=== PATIENT | female | born 1990 | race Caucasian/White ===

== ENCOUNTER 2018-04-23 18:12 | Emergency (ER) | payer MEDICAID, SELFPAY ==
[2018-04-23 18:12] VITALS: BP 149/80; PULSE 84; RESP 16; TEMP 35.6; O2SAT 99; BMI 41.8
--- NOTE | 2018-04-23 18:34 | EKG12_ITS ---
Test Reason : SOB Blood Pressure : / mmHG Vent. Rate : 081 BPM Atrial Rate : 081 BPM P-R Int : 192 ms QRS Dur : 084 ms QT Int : 376 ms P-R-T Axes : 059 076 046 degrees QTc Int : 436 ms Normal sinus rhythm with sinus arrhythmia Normal ECG Confirmed by DEON MCCRAY, EILEEN ([id number]), city editor JANELLE MARCUM ([id number]) on 04/25/2018 3:43:57 PM Referred By: DR DE LEÓN Confirmed By:EILEEN CHAVARRIA MD
--- NOTE | 2018-04-23 18:35 | RAD_ITS ---
STUDY: X-RAY CHEST REASON FOR EXAM: Female, 27 years old. Chest pain TECHNIQUE: Frontal and lateral views COMPARISON: November 12, 2015 FINDINGS: The lungs are clear and expanded. There is no demonstrated pleural abnormality. Normal size heart. Normal mediastinum and tyler. Normal visualized pulmonary arteries. Normal visualized aortic arch and descending thoracic aorta. Normal visualized thoracic spine. Normal visualized ribs, clavicles, and shoulders. There is no demonstrated abnormality of the visualized soft tissue structures of the upper abdomen. RAD/Chest PA and Lateral IMPRESSION: Normal x-ray examination of the chest. Electronically Signed: Audie Shaver DO at 19:54 EST Tel [phone], Service support ,
[2018-04-23 19:16] LABS: Absolute Lymphocyte Count 4.48 X10^3/ul (0.83-4.51); Absolute Neutrophil Count 6.3 X10^3/uL (2.0-7.7); Basophil# 0.02 X10^3/uL; Basophil% 0.2 % (0-1); Eosinophil# 0.21 X10^3/uL; Eosinophils% 1.8 % (0-5); Hematocrit 43.4 % (37-47); Hemoglobin 14.6 g/dl (12.0-15.0); Lymphocyte # 4.48 X10^3/ul (4.0); Lymphocyte % 38.2 % (19-41); Mean Corp Hgb Conc 33.6 g/gl (32-36); Mean Corpuscular Hgb 30.7 pg (27.0-32.0); Mean Corpuscular Volume 91.4 fL (81-99); Mean Platelet Vol. 10.8 fl (6.2-12.0); Monocyte# 0.66 X10^3/uL; Monocyte% 5.6 % (0-10); Neutrophil # 6.33 X10^3/uL (2.7-7.7); POSITIVE COUNT NO; POSITIVE DIFFERENTIAL NO; POSITIVE MORPHOLOGY NO; Platelet Count 285 K/mm3 (150-450); RBC Distribution Width CV 13.2 % (11.6-14.6); RBC Distribution Width SD 43.6 fl (35.1-43.9); Red Blood Count 4.75 M/mm3 (4.2-5.4); White Blood Count 11.7 K/mm3 (4.4-11.0)
[2018-04-23 19:23] LABS: D-Dimer Quantitative (DVT/PE) 0.62 FEU/ug/m (0.27-0.49)
[2018-04-23 19:24] LABS: Anion Gap 8 (5-15); BUN 14 mg/dL (7-18); Calcium,Total 8.4 mg/dL (8.5-10.1); Chloride 107 mmol/L (98-107); Creatinine, Serum 0.82 mg/dL (0.55-1.02); EST Glomerular Filtration Rate 88 mL/min (>60); Est Glom Filt Rate - Afr Amer 106 mL/min (>60); Estimated Creatinine Clearance 84.49 ml/min; Glucose 116 mg/dL (74-106); Potassium 3.9 mmol/L (3.5-5.1); Sodium Level 139 mmol/L (136-145)
--- NOTE | 2018-04-23 19:24 | CT_ITS ---
STUDY: CTA CHEST REASON FOR EXAM: Female, 27 years old. Shortness of breath RADIATION DOSAGE (If Supplied By Facility): CTDIvol = ( 23.37 ) mGy, DLP = ( 690.46 ) mGycm TECHNIQUE: The examination was performed with the intravenous administration of 100 ml of Isovue 370 contrast material. Post-processing of the angiographic images was performed, with multiplanar reformation and 3D reconstruction. Individualized dose optimization techniques were used for this CT. COMPARISON: PA and lateral chest of April 23, 2018 FINDINGS: Ventricular peritoneal shunt catheter crosses the right chest near the midline and enters the right upper quadrant. Normal enhancement of the main pulmonary artery and right and left pulmonary arteries. Normal enhancement of the bilateral peripheral pulmonary arteries. There is no demonstrated pulmonary embolism. Normal thoracic aorta and visualized great vessels. There is no demonstrated aortic dissection. Normal heart and pericardium. Normal mediastinum. Normal hilar regions. Normal visualized trachea and bronchi. The lungs are well expanded. Normal pulmonary parenchyma. Normal pleura. Normal chest wall structures. Normal osseous structures. Status post cholecystectomy. CT/CTA Chest W/WO Contrast IMPRESSION: Normal CTA chest examination, without a demonstrated pulmonary embolism or arterial dissection. Electronically Signed: Danika Flowers MD at 20:37 EST , Service support ,
--- NOTE | 2018-04-23 19:26 | ED.RN ---
dr. cochran aware of elevated d-dimer.
--- NOTE | 2018-04-23 19:30 | ED.DCSUM_ITS ---
- ER Visit Summary Date of Service: 04/23/18 Chief Complaint: Chest pain History of Present Illness: The patient is a 27 F presenting for evaluation secondary to chest pain. Patient reports that today she had a sudden onset of chest pain. She reports that this is very clearly a continuous sharp pain in th e left side of her chest that is worse with taking a deep breath. Fact that she cannot really take a deep breath is causing her to have feelings of dyspnea. Patient states she has been having bilateral calf pain over the course of the last couple of weeks. She denies any recent travel or surgery, history DVT or PE, cancer, smoking. Patient does have a SCRIPT DEVELOPER shunt secondary to headaches and uses Imitrex but does not use any sort of exogenous hormones. Physical Examination: Vital signs are within normal limits, patient is afebrile. General: Patient is well-nourished well-developed and in no acute distress. Head: Normocephalic, atraumatic Eyes: Pupils equal round and reactive bilaterally, extra occular motion intact bialterally ENT: Moist mucous membranes Neck: Supple, no lymphadenopathy, no JVD, no meningismus CVS: Heart regular rate and rhythm, no murmurs, rubs or gallops, radial pulses 2+ bilaterally Resp: Respirations nondistressed, lung sounds clear bilaterally, left anterior chest wall tenderness to palpation without any evidence of deformity, crepitus, or overlying vesicular rash Abdomen: Soft, nontender, nondistended, no palpable masses, normal bowel sounds Back: Nontender Extremities: Nontender, atraumatic, active full range of motion, no peripheral edema Skin: warm, no rashes, no petechia Neuro: Alert and oriented x 4, CN 2-12 intact, no lateralizing neurological defecits Psyc: Normal affect Test Results: EKG demonstrates sinus rate of [address] segments, normal T waves, slightly prolonged MS interval at 192, normal QTc interval. No evidence of WPW or Brugada morphology. CBC, chemistry, troponin are unremarkable. D-dimer found to be elevated. CT angiogram of the chest found to be negative Emergency Department Course and Treatment: Patient presented for evaluation secondary to a sudden onset of pleuritic chest pain. There was some concern for the possibility of PE so a d-dimer was performed which was found to be elevated. CT angiogram of the chest was found to be negative, the remainder the patient's workup was found to be negative. There is a very clear pleuritic component to the patient's pain so I believe the patient likely has an element of pleurisy. Patient will be placed on anti-inflammatories and instructed to follow-up with her primary care physician. Disposition: Discharge Impression: 1. Pleurisy This note was generated with [email or web address] dictation software. It may contain incorrect words, spelling, and punctuation that were not noted in review of the chart prior to signing ED Disposition - Plan for ED Patient: Disposition: Home or Assisted Living Chief Complaint: Shortness of Breath Diagnosis: Pleurisy Instructions: ED Chest Pain Atypical Unkn Cause Prescriptions: Naproxen [Naprosyn] 500 mg PO BID PRN #20 tab Cyclobenzaprine [Flexeril] 10 mg PO TID PRN #20 tab PRN Reason: Muscle Spasm Referrals: Maury Juarez MD [Primary Care Provider] - 5-7 Days
[2018-04-23 20:14] VITALS: BP 113/72; PULSE 80; RESP 20; O2SAT 97
[2018-04-23 22:02] VITALS: BP 103/62; PULSE 75; RESP 22; O2SAT 97
== END 2018-04-23 22:19 | disposition home or self-care (01) ==
PROVIDERS: Emergency Provider Emergency Medicine; Family Provider Family Medicine; PCP Family Medicine
DX: R09.1 Pleurisy (principal); M79.661 Pain in right lower leg; M79.662 Pain in left lower leg; R79.89 Other specified abnormal findings of blood chemistry; Z98.2 Presence of cerebrospinal fluid drainage device; Z87.891 Personal history of nicotine dependence
CPT/HCPCS: 71046; 71275; 80048; 84484; 85025; 85379; 93005; 99284; Q9967; A4216

== ENCOUNTER 2019-03-03 15:51 | Day surgery (SDC) | payer MEDICAID, SELFPAY ==
[2019-03-03] VITALS (9 sets, daily range): BP systolic 97–128; BP diastolic 60–81; PULSE 78–93; RESP 16–24; TEMP 36.1–36.4; O2SAT 97–99; BMI 43.2
[2019-03-03] MEDS: Doxycycline 100 MG CAPSULE 200 MG PO (16:13)
--- NOTE | 2019-03-03 16:30 | POC_PTH ---
PATIENT: JAVI BAUER LOC: [facility] [place] U#:[id number] AGE/SX: 28/F ROOM: RE03/03/[address]: Dr. Magdy Barroso MD : 1990 BED: DIS: 03/03/2019 SPEC #: [id number] RECD: 03/04/19 08:12 STATUS: TAYLOR DEBRA #: [id number] DOYLE: 03/03/19 16:[address]: Magdy Barroso DEPT: SURGICAL PATHOLOGY RECD BY: Khurram Griffiths ENTERED: 03/04/19 09:23 SP TYPE: PROD CONC OTHR DR: Dr. Maury Juarez MD Tissues: Product of conception, NOS Procedures: Surgery Specimen Level IV HEADER OPERATION: Suction dilation and curettage PRE-OP DIAGNOSIS: Missed at 6 weeks TISSUE SUBMITTED: Product of conception MICROSCOPIC DIAGNOSIS Endometrium, curettage: Chorionic villi, decidualized stroma and trophoblastic cells consistent with products of conception. AM:demi 03/05/19 MICROSCOPIC DESCRIPTION Slides are reviewed. GROSS DESCRIPTION Received in fixative is one container labeled with the patient's name and designated products of conception. The specimen consists of multiple irregular fragments of gustafson soft tissue mixed with a few blood clots that in aggregate measure 5 x 5 x 2 cm. tissue is not identified. Clearing Inspector tissue is submitted in three cassettes. / SJ:demi 03/04/19 TC:5 CPT: 19082
[2019-03-03] MEDS: Lactated Ringers 1,000 ML 100 ML IV (16:31)
--- NOTE | 2019-03-03 16:36 | PCM.OPRPT ---
Report of Operation Date of Procedure: 03/03/19 Pre-Operative Diagnosis: Missed at 6 weeks Post-Operative Diagnosis: Same Surgery/Procedure Performed:: Suction dilation and curettage Description of Surgical Findings:: 6 week uterus with POC's Type of Anesthesia:: MAC Specimen's removed: POC's Estimated Blood Loss (mL): 100ml Fluids Replaced: 500ml Description of Procedure: Patient take to OR where MAC anesthesia was placed and confirmed adequate. She was placed in dorsal lithotomy position, prepped & draped. Cervix grasped with a tenaculum and cervix gently dilated. #7 suction curette gently introduced for return of some POC's. Careful sharp curettage performed. Suction curettage repeated. 1 additional pass of sharp curettage performed. Transabdominal ultrasound performed. At end of procedure all instruments removed from vaginal cavity. Vaginal sweep performed. - Complications None - Admit VTE Documentation VTE Present on Admission: No
[2019-03-03 16:38] LABS: Hematocrit 42.2 % (37-47); Hemoglobin 14.2 g/dL (12.0-15.0); Mean Corp Hgb Conc 33.6 g/dL (32-36); Mean Corpuscular Hgb 30.9 pg (27.0-32.0); Mean Corpuscular Volume 91.9 fL (81-99); Mean Platelet Vol. 9.7 fl (6.2-12.0); Platelet Count 324 K/mm3 (150-450); RBC Distribution Width SD 43.8 fl (35.1-43.9); Red Blood Count 4.59 M/mm3 (4.2-5.4); White Blood Count 14.1 K/mm3 (4.4-11.0)
[2019-03-03] MEDS: Lubricating Jelly 60 GM Tube 30 GM TOPICAL (16:38)
--- NOTE | 2019-03-03 16:39 | DCINST_ITS ---
Discharge Diet: No Restrictions Discharge Activity: Return to Normal Activity - after 24 hours, May Shower May resume sexual activity in: 2 weeks Weight Bearing Status: Weight bearing as tolerated Call your doctor if you observe: Fever of 101 or Higher, Coldness, Increased Pain, Numbness or Tingling, Change in Color, Inability to urinate, Inability to have a bowel movement, Using more than one pad per hour, Shortness of breath, Dizziness, Fainting spells, Chest pain, Increased palpitations (irregular heartbeat), Uncontrolled pain Allergies/Adverse Reactions: Allergies hydrocodone [From Vicodin] Adverse Reaction (Verified 03/03/19 16:14) Nausea Medications to take at Discharge Citalopram [Celexa] 40 mg PO DAILY 03/03/19 Primary Care Physician: Maury Juarez MD [Primary Care Provider] - Test Results: Test results from this visit will be discussed in further detail at your follow- up appointment, if applicable.
== END 2019-03-03 18:22 | disposition home or self-care (01) ==
LOC: SDC 15:53 → ACINP 15:56
PROVIDERS: Family Provider Family Medicine; PCP Family Medicine; Referring Provider Obstetrics & Gynecology; Visit Provider Obstetrics & Gynecology
PROC: (CPT 59820; principal; 2019-03-03 16:15)
DX: O02.1 Missed abortion (principal); Q51.3 Bicornate uterus; G93.2 Benign intracranial hypertension; Z86.2 Personal history of diseases of the blood and blood-forming organs and certain disorders involving the immune mechanism; Z86.19 Personal history of other infectious and parasitic diseases; Z98.2 Presence of cerebrospinal fluid drainage device; Z87.891 Personal history of nicotine dependence
CPT/HCPCS: 01965; 59820; 85027; 86850; 86900; 86901; 88305; J7120; J2405

== ENCOUNTER 2020-01-18 16:49 | Emergency (ER) | payer MEDICAID, SELFPAY ==
[2019-03-03 16:15] VITALS: BMI 43.2
[2020-01-18 16:50] VITALS: BP 126/76; PULSE 97; RESP 18; TEMP 36.7; O2SAT 96; BMI 44.2
[2020-01-18] MEDS: Ondansetron 4 MG/2 ML Vial IV (18:28)
[2020-01-18] MEDS: 0.9% Normal Saline 1,000 ML 1000 ML IV (18:28)
[2020-01-18 18:36] LABS: Mucous, Urine 0 SEEN /hpf (<or=2+)
[2020-01-18 18:38] LABS: Absolute Lymphocyte Count 5.25 X10^3/uL (0.83-4.51); Absolute Neutrophil Count 9.8 X10^3/uL (2.0-7.7); Basophil# 0.04 X10^3/uL; Basophil% 0.2 % (0-1); Eosinophil# 0.13 X10^3/uL; Eosinophils% 0.8 % (0-5); Hematocrit 43.4 % (37-47); Hemoglobin 14.8 g/dL (12.0-15.0); Lymphocyte # 5.25 X10^3/ul (4.0); Lymphocyte % 32.1 % (19-41); Mean Corp Hgb Conc 34.1 g/dL (32-36); Mean Corpuscular Hgb 30.9 pg (27.0-32.0); Mean Corpuscular Volume 90.6 fL (81-99); Mean Platelet Vol. 9.8 fl (6.2-12.0); Monocyte# 1.01 X10^3/uL; Monocyte% 6.2 % (0-10); NRBC Flagged by Analyzer 0 % (0-5); Neutrophil # 9.83 X10^3/uL (2.7-7.7); Neutrophil % 60.3 % (47-70); POSITIVE DIFFERENTIAL YES; Platelet Count 335 K/mm3 (150-450); RBC Distribution Width CV 13.2 % (11.6-14.6); Red Blood Count 4.79 M/mm3 (4.2-5.4); White Blood Count 16.3 K/mm3 (4.4-11.0)
[2020-01-18 18:40] LABS: Differential Indicated SCAN CRITERIA MET
[2020-01-18 18:50] LABS: Color, Urine Yellow (Yellow); Glucose, Dipstick Normal (Normal); Ketone-Dipstick 5 mg/dl (Negative); Leukocyte Esterase-Dipstick 500 /ul (Negative); Nitrite-Dipstick Negative (Negative); Occult Blood-Urine 25 /ul (Negative); Protein-Dipstick 15 mg/dl (Negative); Specific Gravity, Urine 1.025 (1.002-1.030); Urine Bilirubin Dipstick Negative (Negative); Urine Clarity Cloudy (Clear); Urine Urobilinogen Normal (Normal)
[2020-01-18 18:54] LABS: Differential Comment SCANNED
[2020-01-18 18:55] LABS: ALB/GLOB Ratio 0.9 RATIO (0.9-2.4); AST(SGOT) 11 U/L (15-37); Alanine Aminotransfer ALT/SGPT 21 U/L (13-56); Albumin, Serum 3.4 g/dL (3.2-5.0); Alkaline Phosphatase 64 U/L (45-117); Anion Gap 7 (5-15); BUN 10 mg/dL (7-18); BUN/Creat Ratio 17.2 RATIO (10-20); Calcium,Total 9.1 mg/dL (8.5-10.1); Chloride 105 mmol/L (98-107); Creatinine, Serum 0.58 mg/dL (0.55-1.02); EST Glomerular Filtration Rate 129 mL/min (>60); Est Glom Filt Rate - Afr Amer 156 mL/min (>60); Estimated Creatinine Clearance 112.17 ml/min; Globulin 3.9 g/dL (2.2-4.2); Glucose 71 mg/dL (74-106); Potassium 3.7 mmol/L (3.5-5.1); Protein, Total 7.3 g/dL (6.4-8.2); Sodium Level 136 mmol/L (136-145)
[2020-01-18 19:24] LABS: White Blood Cells 25-50 SEEN /hpf (0-5)
[2020-01-18 19:25] LABS: Bacteria 2+ /hpf (None Seen); Red Blood Cells-Urine 10-25 SEEN /hpf (0-5); Squamous Epithelial Cells - UA 10-25 SEEN /hpf (5-10)
[2020-01-18 19:45] VITALS: PULSE 79; RESP 16; O2SAT 97
--- NOTE | 2020-01-18 20:32 | ED.DCSUM_ITS ---
- ER Visit Summary Date of Service: 01/18/20 Chief Complaint: Nausea and vomiting History of Present Illness: The patient is a 29 F who presents with nausea and vomiting for the past 2 days. Patient admits to some abdominal pain as well. Patient states she is vomiting up stomach contents. Patient denies any hematemesis or coffee-ground emesis. Patient states her pain is diffuse. Patient described as aching. Patient states the pain is worse with certain movements. Patient also admits to some diarrhea. Patient states it is watery. Patient denies any melena or hematochezia. Patient admits to some dysuria but denies any hematuria. Patient states her last menstrual period was at the end of November. Patient states she took a home test which was positive. Physical Examination: Vital signs are stable. Patient is afebrile. Patient is in no acute distress. Oral mucosa is pink and moist. Neck is supple. Trachea is midline. There is no JVD. Heart was regular rate and rhythm. Lungs are clear and equal bilaterally. Abdomen is soft. Bowel sounds are normal. There is some mild diffuse tenderness. There is no rebound or guarding noted. Cranial nerves II through XII are intact. There are no focal motor or sensory deficits. Extremities are intact. There is no calf tenderness or edema. Test Results: CBC shows a mild leukocytosis of 16.3. Comprehensive metabolic profile was within normal limits. Urinalysis shows a leukocyte esterase of 500 with 25-50 white blood cells and 10-25 red blood cells. There is 2+ bacteria. Quantitative hCG was obtained and was 64,593. Emergency Department Course and Treatment: Patient was given IV fluids and Zofran here. Patient was given her first dose of Keflex. Patient was given prescriptions for Keflex and Zofran. Patient was instructed to follow-up with her primary care physician in 5 to 7 days. Patient was instructed to follow-up with her UTILITY DRIVER in 5 to 7 days. Patient understood and was agreeable with the plan. All questions were answered. Disposition: Discharge home Impression: 1. Urinary tract infection 2. This note was generated with [employer] software. It may contain incorrect words, spelling, and punctuation that were not noted in review of the chart prior to signing ED Disposition - Plan for ED Patient: Disposition: Home or Assisted Living Diagnosis: Urinary tract infection, Instructions: ED CYSTITIS Female Adult, ED Nausea Vomiting Adult, ED Established Normal Symptoms Prescriptions: Cephalexin [Keflex] 500 mg PO Q6 #12 cap Prescription Printed Ondansetron [Zofran Odt] 4 mg PO Q8H PRN PRN #10 tab PRN Reason: Nausea Prescription Printed Referrals: Maury Juarez MD [Primary Care Provider] - 5-7 Days
[2020-01-18] MEDS: Cephalexin 250 MG Capsule 500 MG PO (20:51)
[2020-01-18 20:54] VITALS: BP 122/76; PULSE 74; RESP 18; O2SAT 96
== END 2020-01-18 20:54 | disposition home or self-care (01) ==
PROVIDERS: Emergency Provider Emergency Medicine; PCP Family Medicine
DX: O23.40 Unspecified infection of urinary tract in pregnancy, unspecified trimester (principal); O99.210 Obesity complicating pregnancy, unspecified trimester; E66.9 Obesity, unspecified; Z3A.00 Weeks of gestation of pregnancy not specified
CPT/HCPCS: 80053; 81001; 84702; 85025; 96361; 96374; 99284; J7030; A4216; J2405

== ENCOUNTER 2020-03-07 14:46 | Emergency (ER) | payer MEDICAID, SELFPAY ==
[2020-03-07 14:47] VITALS: BP 131/79; PULSE 105; RESP 15; TEMP 36.7; O2SAT 98; BMI 44.5
== END 2020-03-07 16:19 | disposition left against medical advice (07) ==
LOC: ED 16:17
PROVIDERS: Emergency Provider Emergency Medicine; PCP Family Medicine
DX: Z53.21 Procedure and treatment not carried out due to patient leaving prior to being seen by health care provider (principal)

== ENCOUNTER 2020-06-23 15:38 | Emergency (ER) | payer MEDICAID, SELFPAY ==
[2020-06-23] VITALS (12 sets, daily range): BP systolic 102–122; BP diastolic 63–84; PULSE 92–121; RESP 15–22; TEMP 36.5–36.6; O2SAT 94–99; BMI 47.3
--- NOTE | 2020-06-23 16:00 | EKG12_ITS ---
Test Reason : Blood Pressure : / mmHG Vent. Rate : 101 BPM Atrial Rate : 101 BPM P-R Int : 188 ms QRS Dur : 084 ms QT Int : 348 ms P-R-T Axes : 050 083 036 degrees QTc Int : 451 ms Sinus tachycardia Otherwise normal ECG Confirmed by DEON MCCRAY, EILEEN ([id number]), multimedia editor JANELLE MARCUM ([id number]) on 06/29/2020 6:21:54 AM Referred By: PRETTY Confirmed By:EILEEN CHAVARRIA MD
--- NOTE | 2020-06-23 16:02 | ED.VIS.GEN ---
History of Present Illness Chief Complaint: Shortness of Breath Informant: Patient Onset: Days - 1 week Current Severity: Moderate Maximum Severity: Moderate Narrative: Patient presents secondary to shortness of breath that has been ongoing for the past week. She is currently 30 weeks . She does state that she has been exposed at least 2 people to have Covid and this is her primary concern. No fevers or chills. She has had normal movement. Past Medical History - Allergies and Home Meds Allergies/Adverse Reactions: Allergies hydrocodone [From Vicodin] Adverse Reaction (Verified 06/23/20 15:41) Nausea Primary Care Physician: Maury Juarez MD [Primary Care Provider] - Prior records reviewed: Yes Lives: With Family Smoking Status: Former smoker Review of Systems General: Denies: Chills, Fever Eyes: Denies: Visual changes - bilaterally ENT: Denies: Bilateral ear pain Cardiovascular: Denies: Chest pain Respiratory: Reports: Dyspnea Gastrointestinal: Denies: Abdominal pain, Vomiting, Diarrhea Genitourinary: Denies: Dysuria Musculoskeletal: Denies: Extremity Pain Neurological: Denies: Headache Hematologic: Denies: Easy bruising, Easy bleeding Allergy: Denies: Uticaria Physical Exam Vital Signs/Narrative: Vital Signs Temp Pulse Resp BP Pulse Ox 06/23/20 15:40 97.7 F L 121 H 20 H 122/84 H 97 06/23/20 15:38 97.7 F L 121 H 20 H 122/84 H 97 Inital Vital Signs reviewed: Yes General: Well nourished, Well developed Head: Normocephalic ENT: Moist mucous membranes Neck: Supple Cardiovascular: Tachycardia - Heart rate equals 105 the time of my exam. Respiratory: No distress, CTA bilaterally Abdomen: Soft, Nontender Skin: Normal color Neurological: Alert, Oriented x3 Psychological: Normal affect Diagnostic/Tx/Re-eval Chest X-Ray - ED: 1 View, Read by ED Physician, Normal, Heart, Lungs, Mediastinum Impressions Chest X-Ray 06/23/20 16:10 IMPRESSION: Normal x-ray examination of the chest. Electronically Signed: Minh Mojica MD at 16:59 EST Tel , Service support , 06/23/20 16:10 Chest 1 View (Portable) [RAD] Stat 06/23/20 16:58 CTA Chest W/WO Contrast [CT] Stat Laboratory Results 06/23/20 06/23/20 06/23/20 16:10 16:10 16:10 WBC 13.8 H RBC 3.90 L Hgb 12.1 Hct 35.6 L MCV 91.3 MCH 31.0 MCHC 34.0 RDW Std Deviation 44.5 H RDW Coeff of Zaida 13.4 Plt Count 264 MPV 10.3 Immature Gran % (Auto) 2.000 H Neut % (Auto) 68.7 Lymph % (Auto) 21.4 Valencia % (Auto) 6.4 Eos % (Auto) 1.1 Baso % (Auto) 0.4 Absolute Neuts (auto) 9.5 H Absolute Lymphs (auto) 2.96 Nucleated RBC % 0 D-Dimer Quant (PE/DVT) 1.28 H* Sodium 137 Potassium 3.4 L Chloride 105 Carbon Dioxide 22.0 Anion Gap 10 BUN 8 Creatinine 0.54 L Estim Creat Clear Calc 120.48 Est GFR (MDRD) Af Amer 172 Est GFR (MDRD) Non-Af 142 BUN/Creatinine Ratio 15.0 Glucose 108 H Calcium 8.7 - EKG Initial EKG Interpretation: Sinus Tachycardia - Sinus tach at 101. No acute ischemia. - Medical Decision Making Patient's blood work is largely unremarkable. White count is slightly elevated at 13. Potassium is slightly low and she is given oral replacement. D-dimer is elevated and patient does go for CTA. This was sent out to oncoming physician. We are waiting Covid PCR test results as well. Patient was updated with the current status of these tests and oncoming physician will update her with the results. ED Disposition - Plan for ED Patient: Referrals: Maury Juarez MD [Primary Care Provider] -
--- NOTE | 2020-06-23 16:10 | RAD_ITS ---
STUDY: X-RAY CHEST REASON FOR EXAM: Female, 29 years old. increased SOB. pt 30 weeks preg. exposed to COVID, patient shielded appropriately TECHNIQUE: Single AP portable view of the chest. COMPARISON: 04/23/2018 FINDINGS: Right-sided ventricular peritoneal shunt appears The lungs are clear and expanded. There is no demonstrated pleural abnormality. Normal size heart. Normal mediastinum and tyler. Normal visualized pulmonary arteries. Normal visualized aortic arch and descending thoracic aorta. Normal visualized thoracic spine. Normal visualized ribs, clavicles, and shoulders. There is no demonstrated abnormality of the visualized soft tissue structures of the upper abdomen. RAD/Chest 1 View (Portable) IMPRESSION: Normal x-ray examination of the chest. Electronically Signed: Minh Mojica MD at 16:59 EST Tel , Service support ,
[2020-06-23 16:29] LABS: Absolute Lymphocyte Count 2.96 X10^3/uL (0.83-4.51); Absolute Neutrophil Count 9.5 X10^3/uL (2.0-7.7); Basophil# 0.05 X10^3/uL; Basophil% 0.4 % (0-1); Eosinophil# 0.15 X10^3/uL; Eosinophils% 1.1 % (0-5); Hematocrit 35.6 % (37-47); Hemoglobin 12.1 g/dL (12.0-15.0); Lymphocyte # 2.96 X10^3/ul (4.0); Lymphocyte % 21.4 % (19-41); Mean Corpuscular Volume 91.3 fL (81-99); Mean Platelet Vol. 10.3 fl (6.2-12.0); Monocyte# 0.89 X10^3/uL; Monocyte% 6.4 % (0-10); NRBC Flagged by Analyzer 0 % (0-5); Neutrophil # 9.48 X10^3/uL (2.7-7.7); Neutrophil % 68.7 % (47-70); Platelet Count 264 K/mm3 (150-450); RBC Distribution Width CV 13.4 % (11.6-14.6); RBC Distribution Width SD 44.5 fl (35.1-43.9); White Blood Count 13.8 K/mm3 (4.4-11.0)
[2020-06-23 16:52] LABS: Anion Gap 10 (5-15); BUN 8 mg/dL (7-18); Calcium,Total 8.7 mg/dL (8.5-10.1); Chloride 105 mmol/L (98-107); Creatinine, Serum 0.54 mg/dL (0.55-1.02); EST Glomerular Filtration Rate 142 mL/min (>60); Est Glom Filt Rate - Afr Amer 172 mL/min (>60); Estimated Creatinine Clearance 120.48 ml/min; Glucose 108 mg/dL (74-106); Potassium 3.4 mmol/L (3.5-5.1); Sodium Level 137 mmol/L (136-145)
[2020-06-23] MEDS: Acetaminophen 500 MG Tablet 1000 MG PO (16:52)
[2020-06-23 16:57] LABS: D-Dimer Quantitative (DVT/PE) 1.28 FEU/ug/m (0.27-0.49)
--- NOTE | 2020-06-23 16:58 | CT_ITS ---
STUDY: CTA CHEST REASON FOR EXAM: Female, 29 years old. SOB X 1 WK. 30 WKS PREG. KNOWN COVID EXPOSURE. RADIATION DOSAGE (If Supplied By Facility): CTDIvol = ( 19.11 ) mGy, DLP = ( 736.35 ) mGycm TECHNIQUE: The examination was performed with the intravenous administration of IV 100ML ISOVUE 300. Post-processing of the angiographic images was performed, with multiplanar reformation and 3D reconstruction. Individualized dose optimization techniques were used for this CT. COMPARISON: CT of the chest dated April 23, 2018. FINDINGS: There is poor nondiagnostic enhancement of the main pulmonary artery and right and left pulmonary arteries. There is poor nondiagnostic enhancement of the bilateral peripheral pulmonary arteries. Pulmonary embolism cannot be excluded on this study. Consider nuclear medicine lung perfusion scan for further assessment. Unremarkable thoracic aorta and visualized great vessels. There is no obvious demonstrated aortic dissection. Normal heart and pericardium. Normal mediastinum. Normal hilar regions. Normal visualized trachea and bronchi. The lungs are well expanded. Questionable interstitial edema of both lungs versus respiratory motion artifact. No consolidation is seen. No pleural effusion is present. Normal pleura. Normal chest wall structures. Normal osseous structures. Normal visualized upper abdomen. CT/CTA Chest W/WO Contrast IMPRESSION: 1. There is poor nondiagnostic enhancement of the main pulmonary artery and right and left pulmonary arteries. There is poor nondiagnostic enhancement of the bilateral peripheral pulmonary arteries. Pulmonary embolism cannot be excluded on this study. 2. Consider nuclear medicine lung perfusion scan for further assessment. 3. Questionable interstitial edema of both lungs versus respiratory motion artifact. No consolidation is seen. No pleural effusion is present. Electronically Signed: Hang Aldrich MD at 18:24 EST , Service support ,
--- NOTE | 2020-06-23 16:59 | ED.RN ---
critical d-dimer reported to dr casarez
--- NOTE | 2020-06-23 18:58 | US_ITS ---
STUDY: VENOUS DOPPLER ULTRASOUND - BILATERAL LOWER EXTREMITIES REASON FOR EXAM: Female, 29 years old. SOB TECHNIQUE: Ultrasound evaluation of the deep vein system to include cook-scale imaging and compression was performed. Cook-scale imaging and Doppler sonographic evaluation, including duplex spectral analysis and qualitative color flow sonography, was performed. COMPARISON: None. FINDINGS: RIGHT LEG Common Femoral Vein: Normal compression, spontaneity and augmentation. Normal color Doppler. Common Femoral Vein/Greater Saphenous Junction: Normal compression, spontaneity and augmentation. Normal color Doppler. Deep Femoral Vein: Normal compression, spontaneity and augmentation. Normal color Doppler. Femoral Proximal: Normal compression, spontaneity and augmentation. Normal color Doppler. Femoral Middle: Normal compression, spontaneity and augmentation. Normal color Doppler. Femoral Distal: Normal compression, spontaneity and augmentation. Normal color Doppler. Popliteal Vein: Normal compression, spontaneity and augmentation. Normal color Doppler. Posterior Tibial Vein: Normal compression, spontaneity and augmentation. Normal color Doppler. Peroneal Vein: Normal compression, spontaneity and augmentation. Normal color Doppler. LEFT LEG Common Femoral Vein: Normal compression, spontaneity and augmentation. Normal color Doppler. Common Femoral Vein/Greater Saphenous Junction: Normal compression, spontaneity and augmentation. Normal color Doppler. Deep Femoral Vein: Normal compression, spontaneity and augmentation. Normal color Doppler. Femoral Proximal: Normal compression, spontaneity and augmentation. Normal color Doppler. Femoral Middle: Normal compression, spontaneity and augmentation. Normal color Doppler. Femoral Distal: Normal compression, spontaneity and augmentation. Normal color Doppler. Popliteal Vein: Normal compression, spontaneity and augmentation. Normal color Doppler. Posterior Tibial Vein: Normal compression, spontaneity and augmentation. Normal color Doppler. Peroneal Vein: Normal compression, spontaneity and augmentation. Normal color Doppler. US/Venous Duplex Imag/Waldemar Extrem IMPRESSION: Normal venous Doppler ultrasound of the bilateral lower extremities. Electronically Signed: Hang Aldrich MD at 20:21 EST , Service support ,
[2020-06-23] MEDS: Albuterol 2.5 MG/3 ML VIAL.NEB. INHALATION (20:08)
--- NOTE | 2020-06-23 21:25 | ED.DEP ---
ED Disposition - Plan for ED Patient: Disposition: Home or Assisted Living Diagnosis: Dyspnea, Chest tightness, Third trimester Instructions: ED Dyspnea Prescriptions: Enoxaparin [Lovenox] 120 mg SC Q12H 5 Days #10 syringe Prescription Printed Albuterol Inhaler [Ventolin Hfa] 1 - 2 puff INHALATION Q4H PRN PRN #1 inhaler PRN Reason: Wheezing Prescription Printed Referrals: Maury Juarez MD [Primary Care Provider] - Magdy Barroso MD [STAFF PHYSICIAN] - (will touch base with you tomorrow)
[2020-06-23] MEDS: Enoxaparin 150 MG/ML Syringe 120 MG SC (21:57)
== END 2020-06-23 22:17 | disposition home or self-care (01) ==
PROVIDERS: Emergency Provider Emergency Medicine; PCP Family Medicine
DX: O26.893 Other specified pregnancy related conditions, third trimester (principal); R07.89 Other chest pain; R06.00 Dyspnea, unspecified; R79.89 Other specified abnormal findings of blood chemistry; Z3A.30 30 weeks gestation of pregnancy; Z87.891 Personal history of nicotine dependence
CPT/HCPCS: 71045; 71275; 80048; 85025; 85379; 87635; 93005; 93970; 94640; 96372; 99285; Q9967; A4216; U0002

== ENCOUNTER → 2020-07-11 20:06 | Outpatient (CLI) | payer MEDICAID, SELFPAY ==
[2020-06-23 15:38] VITALS: BMI 47.3
== END ==
PROVIDERS: PCP Family Medicine; Visit Provider Obstetrics & Gynecology
DX: G47.10 Hypersomnia, unspecified (principal); O09.893 Supervision of other high risk pregnancies, third trimester; O99.213 Obesity complicating pregnancy, third trimester; E66.9 Obesity, unspecified; O26.893 Other specified pregnancy related conditions, third trimester; R53.81 Other malaise; R06.02 Shortness of breath; Z3A.31 31 weeks gestation of pregnancy
CPT/HCPCS: 95810

== ENCOUNTER 2022-09-03 12:05 | Emergency (ER) | payer MEDICAID, SELFPAY ==
[2022-09-03 12:06] VITALS: BP 134/81; PULSE 88; RESP 18; TEMP 35.7; O2SAT 100
--- NOTE | 2022-09-03 14:06 | RAD_ITS ---
STUDY: X-RAY - RIGHT FEMUR REASON FOR STUDY: Female, 31 years old. Pain following injury. TECHNIQUE: 4 view(s) of the femur. COMPARISON: None. FINDINGS: Normal visualized femur. Normal visualized soft tissue structure. RAD/Femur Min 2 Views IMPRESSION: Normal x-ray examination of the femur. Electronically Signed: Fausto Campos MD at 14:52 EDT ,
--- NOTE | 2022-09-03 14:06 | RAD_ITS ---
STUDY: X-RAY - RIGHT TIBIA AND FIBULA REASON FOR EXAM: Female, 31 years old. Trauma TECHNIQUE: 2 view(s) of the tibia and fibula were obtained. COMPARISON: None. FINDINGS: Normal visualized tibia. Normal visualized fibula. The soft tissue structures are unremarkable. RAD/Tibia & Fibula 2 Views IMPRESSION: Normal x-ray examination of the tibia and fibula. Electronically Signed: Fausto Campos MD at 14:53 EDT ,
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
[2022-09-03 14:08] VITALS: BMI 42.6
[2022-09-03] MEDS: oxyCODONE 5 MG Tablet 10 MG PO (14:11)
== END 2022-09-03 15:05 | disposition home or self-care (01) ==
PROVIDERS: Emergency Provider Emergency Medicine; PCP Family Medicine; Visit Provider Emergency Medicine
DX: S76.911A Strain of unspecified muscles, fascia and tendons at thigh level, right thigh, initial encounter (principal); S80.12XA Contusion of left lower leg, initial encounter; W17.89XA Other fall from one level to another, initial encounter; Y93.89 Activity, other specified; Y92.810 Car as the place of occurrence of the external cause; Y99.8 Other external cause status; F17.210 Nicotine dependence, cigarettes, uncomplicated
CPT/HCPCS: 73552; 73590; 99283

== ENCOUNTER → 2023-04-09 | Outpatient (CLI) | payer MEDICAID, SELFPAY ==
--- NOTE | 2023-04-09 08:59 | BI_ITS ---
MAMMOGRAPHY - BILATERAL DIAGNOSTIC REASON FOR EXAM: Female, 32 years old. Palpable lump in the upper outer quadrant of the left breast. PERTINENT HISTORY: Non-contributory. TECHNIQUE: Digital bilateral breast elizabeth (3D mammographic acquisition) in the CC and MLO projections. 2-D mediolateral oblique (MLO) and craniocaudad (CC) views of both breasts were obtained. CAD: Full Field Digital Mammography with Computer Added Detection was performed. COMPARISON: None. Baseline examination. FINDINGS: Breast Composition: There are scattered areas of fibroglandular density. There are no dominant masses or suspicious calcifications. Fat-containing bilateral axillary lymph nodes. No other significant abnormalities are identified. BI/DIAG MAMM W/CAD, BILAT IMPRESSION: Negative diagnostic mammogram. With the patient''s history of a palpable lump in the upper anterior aspect of the left breast, correlation with ultrasound is recommended. ASSESSMENT CATEGORY: BIRADS Category 0: Incomplete. Need additional imaging evaluation. A letter regarding these results will be sent to the patient by the facility within 30 days. Approximately 10% of breast cancers are not detected by mammography. A normal mammogram should not delay biopsy of a clinically suspicious abnormality. Electronically Signed: Fausto Campos MD at 10:05 EDT ,
--- NOTE | 2023-04-09 09:00 | US_ITS ---
STUDY: ULTRASOUND BREAST - LEFT REASON FOR EXAM: Female, 32 years old. Palpable lump left breast. TECHNIQUE: Axial and longitudinal images of the LEFT breast were performed with a high resolution ultrasound transducer. # OF IMAGES: 20 COMPARISON: Comparison is made with prior mammogram done earlier in the day. FINDINGS: LEFT Breast: The upper outer quadrant of the left breast was examined with ultrasound. Scattered fibroglandular tissue. No sonographic abnormality is seen. US/Breast Limited Unilateral IMPRESSION: No sonographic abnormality is seen. ASSESSMENT CATEGORY: BIRADS Category 1: Negative. A letter regarding these results will be sent to the patient by the facility within 30 days. Electronically Signed: Fausto Campos MD at 9:45 EDT ,
== END | disposition home or self-care (01) ==
LOC: OPBI 08:57
PROVIDERS: PCP Family Medicine; Referring Provider Nurse Practitioner Family; Visit Provider Nurse Practitioner Family
DX: N63.23 Unspecified lump in the left breast, lower outer quadrant (principal)
CPT/HCPCS: 77062; 76642; 77066; G0279

== ENCOUNTER 2024-03-04 20:07 | Emergency (ER) | payer MEDICAID, SELFPAY ==
[2024-03-04 20:08] VITALS: BP 137/84; PULSE 82; RESP 18; TEMP 36.8; O2SAT 95
[2024-03-04 20:10] VITALS: BMI 47.9
[2024-03-04] MEDS: Diphth,Pertuss(Acell),Tet Vac 0.5 ML Vial IM (21:02)
--- NOTE | 2024-03-04 21:07 | RAD_ITS ---
STUDY: X-RAY - LEFT TIBIA AND FIBULA REASON FOR EXAM: Female, 33 years old. INJURY/PAIN TECHNIQUE: AP and lateral view(s) of the tibia and fibula were obtained. COMPARISON: None. FINDINGS: Normal visualized tibia. Normal visualized fibula. The soft tissue structures are unremarkable. RAD/Tibia & Fibula 2 Views IMPRESSION: Normal x-ray examination of the tibia and fibula. Electronically Signed: Maury Denney MD at 21:44 EDT ,
--- NOTE | 2024-03-04 22:01 | EX.ED.GENINJ ---
HPI History of Present Illness Chief Complaint: Fall Informant: patient Onset/Context/Timing Onset: Today Mechanism/Context: Fall Location of pain/injuries: Left lower leg Quality of Pain: Sharp and Throbbing Location: Left lower leg Worsened by: Movement Relieved by: Nothing Associated Symptoms Associated Symptoms: Positive for Inability to ambulate; Negative for Parasthesias, Weakness, Loss of function, Loss of consciousness or Amnesia Narrative Narrative: Patient presents with pain in her left lower leg that began after a fall tonight. Patient states he stepped out onto a step and fell through a step. Patient states she fell approximately 3 feet. Patient complains of pain over the anterior aspect of the left lower leg. Patient states her pain is worse with any weightbearing. Patient denies any paresthesias or weakness. Patient describes her pain as sharp and throbbing. Patient denies any head injury or loss of consciousness. Patient denies any other injuries. Patient is unsure of her last tetanus. Tetanus Immunization: Unknown [facility] Medical History (Updated 03/04/24 @ 22:[address] Tony Hammonds, ) Hydrocephalus Medical History no medical history no medical history Home Medications ?Medication ?Instructions ?Recorded ?Last Taken ?Type NK 09/03/22 Unknown History Allergy/AdvReac Type Severity Reaction Status Date / Time hydrocodone (From Vicodin) AdvReac Nausea Verified 03/04/24 20:08 Family History no significant family his Surgical History (Updated 03/04/24 @ 22:[address] Tony Hammonds, DO) History of repair of ACL History of right salpingo-oophorectomy S/P PATIENT CLERICAL ASSISTANT shunt Hx of tonsillectomy Social History Smoking Status: Former smoker ROS ROS ED Constitutional Constitutional ED: Denies chills or fever(s) Eyes Eyes: Denies blurry vision or change in vision ENT ENT ED: Denies rhinorrhea or sore throat Cardiovascular Cardiovascular: Denies chest pain or palpitations Respiratory/Chest Respiratory/Chest: Denies cough or dyspnea Gastrointestinal Gastrointestinal: Denies nausea or vomiting Genitourinary Genitourinary ED: Denies dysuria or hematuria Musculoskeletal Musculoskeletal: Denies back pain or neck pain Integumentary Denies abscess or rash Neurologic Neurologic: Denies headache(s) or weakness Allergic/Immunologic Allergic/Immunologic ED: Denies mouth swelling or urticaria EXAM Physical Exam Const Vital Signs: 03/04/24 20:08 03/04/24 20:19 Temperature 98.3 F Temperature Source Oral Pulse Rate 82 Respiratory Rate 18 Respiratory Effort Normal Respiratory Depth Normal Respiratory Pattern Normal Blood Pressure 137/84 H Blood Pressure Mean 101 Pulse Ox 95 Oxygen Delivery Method Room Air Room Air Positive well nourished and well developed General Appearance ED: well developed and NAD Neck full ROM Extremity Extremity Narrative: There is tenderness over the anterior aspect of the left tibia. There is no bony crepitance or step-off. There are some mild edema. There is no deformity noted. There is good range of motion of the left knee and left ankle. Sensation was intact to light touch bilaterally in the lower extremities. Strength is 5/5 bilaterally in the lower extremities. General Extremety ED: Yes tenderness; Negative for deformity General Extremity: Negative for deformity Neuro oriented x3, CN's II-XII intact bilaterally, moves all extremities, no focal motor deficits and no sensory deficits noted Nicholas Coma Scale: document GCS findings Spontaneous Obeys Commands Oriented 15 Sensorium / Orientation: alert Motor Exam: strength 5/5 throughout Psych mental status grossly normal and thought process normal Skin Skin Narrative: There is a superficial abrasion over the anterior aspect of the left lower leg. There is no active bleeding noted. There is no erythema or warmth. Trauma: abrasion MDM MDM MDM Narrative Medical decision making narrative: Differential diagnosis includes fracture, contusion, and sprain. X-rays of the left tibia and fibula will be obtained to assess for fracture. Radiography Diagnostic Testing: Clinical Impression(s) from Imaging Studies Tibia/Fibula X-Ray 03/04/24 21:07 IMPRESSION: Normal x-ray examination of the tibia and fibula. Electronically Signed: Maury Denney MD at 21:44 EDT , X-rays of the left tibia and fibula were obtained. There are 2 views. On my independent interpretation, there is no acute fracture or dislocation noted. Radiologist also interpreted the x-rays and agrees. Treatment and Re-Evaluation Narrative: Patient was given a tetanus booster. Patient was given a dose of Tylenol here. Patient was advised of her findings. Patient was instructed to ice and elevate her left leg. Patient was instructed to follow-up with her primary care physician in 5 to 7 days. Patient understood and was agreeable with the plan. All questions were answered. Discharge Plan Triage Chief Complaint: Fall ED Provider: Tony Hammonds Dx/Rx/DC Orders Clinical Impression: Contusion of left lower leg, initial encounter, Abrasion, left lower leg, initial encounter, Fall Instructions: ED Abrasion, ED Contusion, Lower Extremity Prescriptions: No Action NK Primary Care Provider: Maury Juarez Referrals: Maury Juarez MD [Primary Care Provider] - 5-7 Days Print Language: Chinese Disposition Disposition: Home, Self Care
[2024-03-04 22:07] VITALS: BP 119/67; PULSE 70; RESP 18; O2SAT 94
[2024-03-04 22:23] VITALS: BP 119/67; PULSE 70; RESP 18; TEMP 36.8; O2SAT 94
== END 2024-03-04 22:27 | disposition home or self-care (01) ==
PROVIDERS: Emergency Provider Emergency Medicine; PCP Family Medicine; Visit Provider Emergency Medicine
DX: S80.12XA Contusion of left lower leg, initial encounter (principal); Z87.891 Personal history of nicotine dependence; S80.812A Abrasion, left lower leg, initial encounter; W10.9XXA Fall (on) (from) unspecified stairs and steps, initial encounter; Z90.721 Acquired absence of ovaries, unilateral; Z23 Encounter for immunization
CPT/HCPCS: 73590; 90471; 90715; 99282